=== PATIENT | female | born 1970 | race Two or more races ===

== ENCOUNTER → 2024-10-23 | Outpatient (CLI) | payer BC, SELFPAY ==
--- NOTE | 2024-10-23 13:30 | XR_ITS ---
Examination: Screening digital mammography, bilateral Computer aided detection 3-D breast Tomosynthesis, bilateral Date and time of exam: October 23, 2024 1330 hours Compared to mammograms dating to April 12, 2013 Indication: Screening Technique: Nonmagnified MLO, CC views of the breasts to been obtained, reconstructed from 3-D Tomosynthesis images. R2 computer aided detection program utilized for evaluation of suspicious masses and/or abnormal calcifications. 3-D Tomosynthesis images obtained. Findings: The breasts are heterogeneously dense, which may obscure small masses 13 mm round mass upper outer right breast partially indistinct margins 4 mm probable intramammary lymph node upper outer left breast Impression: BI-RADS Category 0: Incomplete: Need additional imaging evaluation 13 mm round mass upper outer right breast partially indistinct margins, recommend follow-up spot tomographic views of this mass as well as bilateral breast sonography to complete the workup
--- NOTE | 2024-10-23 13:45 | XR_ITS ---
Examination: Bone densitometry Date and time of exam:October 23, 2024 1357 hours INDICATIONS: Menopause age 48 Technique: Lumbar spine and hip total bone mineralization values of an calculated. Peak reference and age match control results have been displayed. Findings: Lumbar spine total bone mineralization is0.919 gm/cm2. This is 0.9 standard deviations below peak reference. This is 0.2 standard deviations above age-matched controls. Hip total bone mineralization is 0.830 gm/cm2 This is 1.0 standard deviations below peak reference. This is 0.2 standard deviations below age-matched controls Impression: There is normal mineralization based on lumbar spine measurements. There is normal mineralization based on hip measurements
--- NOTE | 2024-10-23 13:51 | XR_ITS ---
Examination: Knee, left , 3 views Technique: Knee AP, lateral, oblique 3 views Date and time of exam: October 23, 2024 1415 hours INDICATIONS: Status post arthroplasty one year ago with left knee pain FINDINGS: Total left knee arthroplasty. Satisfactory alignment Sclerotic area in the femoral shaft which may represent bone infarct No fracture IMPRESSION: Total left knee arthroplasty with satisfactory alignment
== END | disposition home or self-care (01) ==
LOC: CDIM 13:24
DX: Z12.31 Encounter for screening mammogram for malignant neoplasm of breast (principal); N63.11 Unspecified lump in the right breast, upper outer quadrant; M85.80 Other specified disorders of bone density and structure, unspecified site; Z96.652 Presence of left artificial knee joint
CPT/HCPCS: 73562; 77063; 77067; 77080

== ENCOUNTER → 2024-12-20 | Outpatient (CLI) | payer BC, SELFPAY ==
--- NOTE | 2024-12-20 10:00 | XR_ITS ---
Examination: Breast ultrasound complete, bilateral Date and time of exam: December 20, 2024 1034 hours INDICATIONS: Mammogram October 23, 2024 13 mm mass upper outer right breast Technique: Real-time grayscale ultrasonographic imaging bilateral breasts, including all 4 quadrants as well as nipple retroareolar and axillary regions. Findings: Sonographic images right breast 3:00 cyst 7 x 6 mm 9:00 nodule versus glandular tissue 12 x 14 mm Sonographic images left breast 2:00 cyst 5 x 6 mm No solid nodules IMPRESSION: BI-RADS Category 3: Probably benign findings One additional 6 month right breast sonogram follow-up is needed to document stability of 9:00 nodule right breast 12 x 5 x 14 mm
--- NOTE | 2024-12-20 11:00 | XR_ITS ---
Examination: Diagnostic digital mammography, unilateral, right Computer aided detection 3-D breast Tomosynthesis, unilateral Date and time of exam: December 20, 2024 1053 hours INDICATIONS: Mammogram October 23, 2024 13 mm round mass upper outer right breast partially indistinct margins Technique: Nonmagnified MLO, CC views of the right breast have been obtained, reconstructed from 3-D Tomosynthesis images. R2 computer aided detection program utilized for evaluation of suspicious masses and/or abnormal calcifications. 3-D Tomosynthesis images obtained. Findings: The breast is heterogeneously dense, which may obscure small masses Focal asymmetry does remain on the spot compression MLO view upper right breast Impression: BI-RADS category 3: Probably benign findings One additional 6 month right mammogram follow-up is needed to document stability of focal asymmetry upper right breast on the spot compression MLO view
== END | disposition home or self-care (01) ==
DX: R92.333 Mammographic heterogeneous density, bilateral breasts (principal); N64.89 Other specified disorders of breast; N63.15 Unspecified lump in the right breast, overlapping quadrants
CPT/HCPCS: 76641; 77061; 77065; G0279

== ENCOUNTER → 2025-06-23 | Outpatient (CLI) | payer BC, SELFPAY ==
--- NOTE | 2025-06-23 09:00 | XR_ITS ---
Examination: Breast ultrasound, unilateral, right complete Date and time: June 23, 2025, 1009 hours INDICATIONS: Mammogram December 20, 2024 focal asymmetry MLO view upper right breast, bilateral breast sonography December 20, 2024 9:00 nodule right breast versus glandular tissue 12 x 14 mm, bilateral breast pain 1 year Technique: Real-time franklin scale ultrasonographic imaging performed right breast including all 4 quadrants as well as nipple retroareolar and axillary region. Findings: Multiple benign cysts, the largest in the 4:00 and 9 o'clock position 6 x 5 mm No solid nodules IMPRESSION: BI-RADS Category 2: Benign findings
--- NOTE | 2025-06-23 09:30 | XR_ITS ---
Examination: Diagnostic digital mammography, unilateral, right Computer aided detection 3-D breast Tomosynthesis, unilateral Date and time of exam: June 23, 2025, 1035 hours INDICATIONS: Mammogram December 20, 2024 focal asymmetry upper outer right breast Technique: Nonmagnified MLO, CC views of the right breast have been obtained, reconstructed from 3-D Tomosynthesis images. R2 computer aided detection program utilized for evaluation of suspicious masses and/or abnormal calcifications. 3-D Tomosynthesis images obtained. Findings: The breast is heterogeneously dense, which may obscure small masses Partially circumscribed 7 mm nodule upper outer right breast, likely corresponding to benign cyst on ultrasound study today Impression: BI-RADS category 2: Benign findings Return to yearly follow-up mammography
== END | disposition home or self-care (01) ==
DX: R92.321 Mammographic fibroglandular density, right breast (principal)
CPT/HCPCS: 76641; 77061; 77065; G0279